=== PATIENT | male | born 1975 | race Caucasian/White ===

== ENCOUNTER 2018-04-11 12:52 | Emergency (ER) | payer OTHER ==
[~2018-04-11] VITALS: Ht 180.3 cm; Wt 107.5 kg
[~2018-04-11 12:52] MED LIST: OMEPRAZOLE; PRILOSEC; SOMA; VENLAFAXINE; VICODIN; XANAX
[2018-04-11] MEDS ORDERED: TRAZODONE TAB 100MG (13:12)
[2018-04-11] MEDS ORDERED: TEMAZEPAM 30 MG CAPSULE (13:12)
[2018-04-11] MEDS ORDERED: VENLAFAXINE HCL 75 MG (13:12)
[2018-04-11] MEDS ORDERED: ROPINIROLE HCL 2 MG TABLET (13:12)
[2018-04-11] MEDS ORDERED: CARISOPRODOL 350 MG TABLET (13:12)
[2018-04-11] MEDS ORDERED: HYDROCO/APAP TAB 10-325MG (13:13)
[2018-04-11] MEDS ORDERED: HYDROMORPHONE 1 MG/1 ML DISP.SYRIN IM ONE (13:30)
[2018-04-11] MEDS ORDERED: ONDANSETRON 4 MG/2 ML VIAL IM ONE (13:30)
[2018-04-11] MEDS ORDERED: HYDROMORPHONE 2 MG/1 ML DISP.SYRIN ONE (13:51)
[2018-04-11] MEDS ORDERED: ONDANSETRON 4 MG/2 ML VIAL ONE (13:51)
[2018-04-11 14:36] VITALS: BP 142/46
--- NOTE | 2018-04-11 14:36 | NUR ---
MSE COMPLETED, PT D/C'D HOME, ACI/RX X1 GIVEN. PT TOOK ALL BELONGINGS,
== END 2018-04-11 14:37 | disposition home or self-care (01) ==
LOC: ER 12:55
DX: M54.5 Low back pain (principal); K21.9 Gastro-esophageal reflux disease without esophagitis; G89.29 Other chronic pain; F17.210 Nicotine dependence, cigarettes, uncomplicated; Z76.0 Encounter for issue of repeat prescription; Z88.0 Allergy status to penicillin; Z79.891 Long term (current) use of opiate analgesic; Z79.899 Other long term (current) drug therapy
CPT/HCPCS: 72040; 72100; 73600; A4663; J1170; J2405

== ENCOUNTER 2018-04-26 16:44 | Emergency (ER) | payer MEDICAID, OTHER ==
[~2018-04-26] VITALS: Ht 180.3 cm; Wt 107.5 kg
[~2018-04-26 16:44] MED LIST changes: +CARISOPRODOL 350 MG TABLET; +HYDROCO/APAP TAB 10-325MG; -OMEPRAZOLE; -PRILOSEC; +ROPINIROLE HCL 2 MG TABLET; -SOMA; +TEMAZEPAM 30 MG CAPSULE; +TRAZODONE TAB 100MG; -VENLAFAXINE; +VENLAFAXINE HCL 75 MG; -VICODIN; -XANAX
--- NOTE | 2018-04-26 17:02 | NUR ---
PT SEEN AND EVALUATED BY DR RESENDEZ.
--- NOTE | 2018-04-26 17:06 | NUR ---
Patient discharged to home in stable conditon. Written and verbal after care instructions given. Patient verbalizes understanding of instructions.pt drove his own motorized wheelchair accompanied by so.
== END 2018-04-26 17:07 | disposition home or self-care (01) ==
LOC: ER 16:44
DX: G89.29 Other chronic pain (principal); K21.9 Gastro-esophageal reflux disease without esophagitis; F17.210 Nicotine dependence, cigarettes, uncomplicated; Z88.0 Allergy status to penicillin
CPT/HCPCS: A4663